=== PATIENT | male | born 1975 | race Caucasian/White ===

== ENCOUNTER 2017-09-09 05:50 | Inpatient (IN) | payer OTHER ==
[~2017-09-09] VITALS: Ht 200.7 cm; Wt 116.1 kg
[2017-09-09] VITALS (13 sets, daily range): BP systolic 120–152; BP diastolic 61–92
[~2017-09-09 05:50] MED LIST: HYDROCHLOROTH12.5 MG ORAL; LISINOPRIL10 MG ORAL; NORCO 10-325 T1 EACH ORAL; XANAX1 MG ORAL
[2017-09-09] MEDS ORDERED: Thrombin 5000 units spray kit TOPIC ONE (07:19)
[2017-09-09] MEDS ORDERED: Thrombin 5000 units TOPIC ONE (07:19)
[2017-09-09] MEDS ORDERED: EPINEPHrine 1mg/1ml Amp ONE (07:19)
[2017-09-09] MEDS ORDERED: Bacitracin Oint 15gm Tube TOPIC ONE (07:19)
[2017-09-09] MEDS ORDERED: Bupivacaine 0.5% Inj 30 ml vial INJ ONE (07:20)
[2017-09-09] MEDS ORDERED: Gelfoam Absorbable 1gm powder pkt TOPIC ONE (07:20)
[2017-09-09] MEDS ORDERED: Bacitracin 50000 Units Vial ONE ×2 (07:20→11:56)
[2017-09-09] MEDS ORDERED: Succinylcholine 20mg/ml 10ml vial ONE (07:56)
[2017-09-09] MEDS ORDERED: Zemuron 50mg/5ml Inj IV ONE ×2 (07:57→09:30)
[2017-09-09] MEDS ORDERED: LR 1000ml ONE (08:00)
[2017-09-09] MEDS ORDERED: Propofol 200mg/20ml IV ONE ×4 (08:02→12:11)
[2017-09-09] MEDS ORDERED: Ketorolac 30mg Inj ONE (08:06)
[2017-09-09] MEDS ORDERED: Glycopyrrolate 0.2mg/ml 1ml Vial ONE ×2 (08:06→10:18)
[2017-09-09] MEDS ORDERED: Lidocaine 1% MPF 10mg/ml 5ml ONE (08:06)
[2017-09-09] MEDS ORDERED: Dexamethasone 4mg/ml vial ONE (08:06)
--- NOTE | 2017-09-09 08:17 | Pre-Procedure Note/Attestation ---
Pre-Procedure Note/Attestation Complete Prior to Procedure Planned Procedure: bilateral - C6/7 bilateral foraminotomy, exploration of fusion C5 to C7 and revision PSIF C5 to C 7 Indications for Procedure Pre-Operative Diagnosis: pseudarthrosis C5 to C7 Attestation I attest that I discussed the nature of the procedure; its benefits; risks and complications; and alternatives (and the risks and benefits of such alternatives ), prior to the procedure, with the patient (or the patient's legal customer service representative). I attest that, if there was a reasonable possibility of needing a blood transfusion, the patient (or the patient's legal customer service representative) was given the [place] [employer] standardized written summary, pursuant to the Jovan Cici Blood Safety Act ([place] Health and Safety Code # 1645, as amended). I attest that I re-evaluated the patient just prior to the surgery and that there has been no change in the patient's H&P, except as documented below:no changes. NATHALY CLEANING Sep 09, 2017 08:17
[2017-09-09] MEDS ORDERED: Morphine Sulfate 10mg/ml Inj ONE (08:45)
[2017-09-09] MEDS ORDERED: fentaNYL 100 mcg/2 mL IV ONE ×3 (09:00→12:15)
[2017-09-09] MEDS ORDERED: Midazolam 2mg/2ml Inj ONE (09:03)
[2017-09-09] MEDS ORDERED: Acetaminophen 650 MG SUPP RECTAL PRN (09:15)
[2017-09-09] MEDS ORDERED: Labetalol 5mg/ml 20ml vial IV ONE (10:07)
[2017-09-09] MEDS ORDERED: HYDROcodone/Acetamin 7.5/325 tab ORAL PRN (11:15)
--- NOTE | 2017-09-09 13:32 | Brief Operative Note ---
Immediate Post Operative Note Operative Note Pre-op Diagnosis: pseudarthrosis C5 to C7 Procedure: Exploration of fusion C5 to C7, Bilateral C7 foraminotomy, posterior C5 to C7 PSIF with Lateral mass screws. 14mm long. Post-op Diagnosis: same as above Post-op Diagnosis: same as pre-op Findings: consistent w/pre-op dx studies Surgeon: caro Automatic Dry Starch Operator: burt WEINSTEIN Anesthesiologist: kyleigh corbett Anesthesia: general Specimen: none Complications: none Condition: stable Fluids: per Dr. Corbett Estimated Blood Loss: volume - 100 Drains: hemovac Implant(s) used?: Yes - Xspine posterior cervical system NTAHALY CLEANING Sep 09, 2017 13:32
[2017-09-09] MEDS ORDERED: Ketorolac 30mg Inj IV PRN (13:51)
[2017-09-09] MEDS ORDERED: Midazolam 2mg/2ml Inj IVP PRN (13:51)
[2017-09-09] MEDS ORDERED: LR 1000ml 1,000 ML IVLG SCH (14:00)
[2017-09-09] MEDS ORDERED: Naloxone 0.4mg/ml Inj IVP PRN (16:00)
--- NOTE | 2017-09-09 16:15 | Diagnostic Imaging Report ---
Indication: Pain, intraoperative Technique: Intraoperative images Comparison: none Findings: Images are very limited due to patient body habitus, demonstrate placement of posterior fusion hardware in the lower cervical spine Impression: Intraoperative imaging, as described
[2017-09-09] MEDS: D5 1/2NS w/KCl 20mEq 1,000 ML IV SCH (16:33)
[2017-09-09] MEDS: LORazepam 1mg tab ORAL PRN (17:14)
[2017-09-09] MEDS: Docusate 100mg cap ORAL SCH (17:14)
[2017-09-09] MEDS: Chloraseptic Spray 20mL Bottle ORAL PRN ×2 (18:33→23:32)
[2017-09-09] MEDS: ceFAZolin sod 1 GM in D5W 55 ML IV SCH (18:33)
[2017-09-09] MEDS: oxyCODONE 5mg IR tab ORAL PRN (20:32)
[2017-09-09] MEDS: HYDROcodone/Acetamin 7.5/325 tab ORAL PRN (23:31)
--- NOTE | 2017-09-10 00:30 | Operative Note - Dictated ---
DATE OF OPERATION: 09/09/2017 PREOPERATIVE DIAGNOSES: 1. Status post anterior cervical diskectomy and fusion C5-C7 status post spinal injury. 2. Pseudoarthrosis, most probable at C6-C7, recurrent radiculopathy, left arm greater than right arm. POSTOPERATIVE DIAGNOSES: 1. Status post anterior cervical diskectomy and fusion C5-C7 status post spinal injury. 2. Pseudoarthrosis, most probable at C6-C7, recurrent radiculopathy, left arm greater than right arm. PROCEDURE PERFORMED: 1. Rojas headholder with traction. 2. Posterior exploration of fusion. 3. Posterior arthrodesis with lateral mass screw, C5, C6, C7 bilaterally. 4. Bilateral foraminotomy, C7. 5. Posterolateral allograft and autograft fusion collected locally. 6. Posterior instrumentation. 7. BMI of greater than 35 and significant complexity factor due to BMI is necessary. SURGEON: Nelson Smith M.D. CONSULTING ACTUARY: [facility]. ANESTHESIOLOGIST: Robi Sandoval M.D. ANESTHESIA: General endotracheal combined anesthesia. ESTIMATED BLOOD LOSS: 100 to 150 mL. URINE OUTPUT: Per anesthesia records. INDICATIONS FOR PROCEDURE: A pleasant gentleman with a significant cervical pathology status post spinal injury. The patient had a previous ACDF performed by ma. He had done relatively well clinically, however, had a recurrent symptomatology with recurrent arm pain, left greater than right. He had a honeymoon period. The patient subsequently had been diagnosed with pseudarthrosis high probability, especially at C6-C7. The patient was offered surgical intervention to address his pseudoarthrosis versus continue living with pain. Conservative treatment was also discussed. The patient was found to have surgical intervention to address the pseudoarthrosis. The patient understood the risks and benefits of surgery including alternatives. No guarantees of outcome were given. The patient's risk factors include large body habitus. This increased the complexity of the surgery as well as extremely increases the difficulty of visualization of the hardware. The patient was cleared medically and subsequently taken to the operating room. On the day of surgery, the patient was positively identified. He had been optimized for surgery. He was intubated by the anesthesiologist, appropriate lines were inserted, and subsequently Rojas headholder traction was placed in the usual customary fashion. Approximately 2 to 3 fingerbreadths from the tragus midline in line with the tragus with single spike in the contralateral holding two spikes were spread between the temporalis and the parietal region. Once was applied, he was positioned with in-supervisor pipeline of the spine onto the Prasanth frame and the [place] headholder. Once he was secured safely with extensive tape with the abdomen hanging free, the x-rays were attempted to be taken. The fluoroscopic views were taken. The patient had significantly difficult body habitus as mentioned. The anterior-posterior view was the only good view and the lateral, I was only able to visualize C3. With rainbow views, I was able to visualize the hardware anteriorly, however, only as mentioned an oblique rainbow views. DESCRIPTION OF PROCEDURE: The patient's neck was prepped and draped in usual sterile fashion. Antibiotics were delivered as standard protocol. A surgical pause was undertaken. Subsequently, the posterior neck was prepped and draped and after surgical pause, an incision was made approximately 10 cm to 12 cm long. The subperiosteal dissection was carried down to the tips of the lateral masses dorsally. The facet joints were protected. During the exposure, my assistant front end manager performed cooling measures with copious irrigation during the exposure to prevent thermal injury. Once I had the posterior spine exposed, I palpated the lamina and found the most mobile lamina to be C4-C5, which was also confirmed on x-ray in the lateral view with oblique views. Again, there was significant tactile feedback relied on and very little x-ray assistance due to the patient's body habitus. The most stiffness were considered to be C5-C6 and C6-C7. However, there was still some mobility in those lamina as well. However, the C4-C5 lamina was the most mobile, and therefore, this was considered the C4-C5. I also obtained AP view, which confirmed the level. Subsequently, I drilled a regulatory affairs strategy specialist hole at C5, C6, and C7 and placed lateral mass screws in the usual trajectory with outward and upward trajectory. I countersunk the screws and placed 14 mm lateral mass screws. I had 5 solid sanchez with ball-tipped feelers in each regulatory affairs strategy specialist hole. Once I had initial C5 screws in, I reassessed with fluoroscopic views several times including oblique rainbow views and anterior-posterior views. Once I was able to crisp up and obtain a nice flat C5 cephalad vertebral endplate, it was notable that the C5 screws were in the right position. Again, this was a very difficult undertaking and the x-rays were very limited in assistance, even lateral x-rays with intraoperative portable x-ray was extremely difficult with the best visualization being at C3. Once the lateral mass screws were inserted, I irrigated the wound and placed the microscope into the view with my assistance and performed a foraminotomy using no pressure on the nerve roots and the Midas Ignacio drill as well as micro curettes and Kerrisons. Once I performed a generous foraminotomy on both sides, I copiously irrigated with pulse lavage of approximately 4-6 liters with bacitracin and placed a aaron and locked in with set screws. Once I performed the foraminotomy, it was noticeable that the C6-C7 level was very mobile as expected. The aaron was set, locked in place, lateral gutters were decorticated, and local collected bone graft was placed as well as fiber graft allograft. Final x-rays demonstrated good positioning of the anterior-posterior view. Again, the lateral view was very limited. [place] views were noted and they were found to be what seemed to be the most optimal position of the lateral mass screws. Direct visualization was also utilized as well as orthopedic technique with palpating the trajectory of the facet joint at the C4-C5 level and subsequently inserting the lateral mass screws in the upward and lateral position. The wound was copiously irrigated again and reapproximated with #1 Vicryl for the fascia and 2-0 Vicryl for dermis and 3-0 Monocryl for the skin. Implants were X-Spine Certex screws. Nelson Smith M.D. DR: ANAY JOB#: [id number] CC:
[2017-09-10] MEDS: LORazepam 1mg tab ORAL PRN ×2 (02:31→12:46)
[2017-09-10] MEDS: HYDROcodone/Acetamin 7.5/325 tab ORAL PRN ×3 (02:38→11:14)
[2017-09-10] MEDS: D5 1/2NS w/KCl 20mEq 1,000 ML IV SCH ×3 (02:41→22:38)
[2017-09-10] MEDS: ceFAZolin sod 1 GM in D5W 55 ML IV SCH ×2 (02:41→11:14)
[2017-09-10 04:00] VITALS: BP 132/74
[2017-09-10] MEDS: oxyCODONE 5mg IR tab ORAL PRN (05:48)
[2017-09-10 05:57] LABS: EOSINOPHILS % (AUTO) 0.6 % (0.0-3.0); HEMATOCRIT 37.6 % (42.0-52.0); HEMOGLOBIN 13.1 G/DL (14.2-18.0); LYMPHOCYTES % (AUTO) 26.9 % (20.0-45.0); MEAN CORPUSCULAR VOLUME 87 FL (80-99); MONOCYTES % (AUTO) 12.8 % (1.0-10.0); NEUTROPHILS % (AUTO) 58.6 % (45.0-75.0); PLATELET COUNT 208 K/UL (150-450); RED CELL DISTRIBUTION WIDTH 12.2 % (11.6-14.8); WHITE BLOOD COUNT 8.8 K/UL (4.8-10.8)
[2017-09-10 06:00] LABS: ANION GAP 8 mmol/L (5-15); BLOOD UREA NITROGEN 17 mg/dL (7-18); CALCIUM 7.9 MG/DL (8.5-10.1); CARBON DIOXIDE 27 MMOL/L (21-32); CHLORIDE 105 MMOL/L (98-107); CREATININE 1.2 MG/DL (0.55-1.30); POTASSIUM 4.1 MMOL/L (3.5-5.1); SODIUM 140 MMOL/L (136-145)
[2017-09-10] MEDS: Chloraseptic Spray 20mL Bottle ORAL PRN (06:55)
[2017-09-10 08:00] VITALS: BP 121/76
--- NOTE | 2017-09-10 08:06 | General Progress Note ---
Assessment/Plan Assessment/Plan pseudarthrosis C5 to C7 Exploration of fusion C5 to C7, Bilateral C7 foraminotomy, posterior C5 to C7 PSIF with Lateral mass screws. PLAN 1. incentive spirometry 2. DVT prophylaxis 3. PT evaluation and therapy 4. Hydration 5. Pain management; dc drain 6. discharge once stable with outpatient follow up. Subjective Allergies: Coded Allergies: METOCLOPRAMIDE (Verified Adverse Reaction, Severe, agitation and shaky, ) Subjective care noted has pain Objective Last 24 Hour Vital Signs Date Time Temp Pulse Resp B/P (MAP) Pulse Ox O2 Delivery O2 Flow Rate FiO2 09/10/17 04:00 98.2 85 19 132/74 96 Nasal Cannula 3.0 98.2 09/10/17 02:38 98.7 09/09/17 23:57 98.7 107 19 124/66 98 Nasal Cannula 3.0 98.7 09/09/17 20:00 98.0 108 19 122/65 99 Nasal Cannula 3.0 98.0 09/09/17 20:00 Nasal Cannula 2.0 28 09/09/17 20:00 98 Nasal Cannula 2.0 28 09/09/17 16:00 98.4 104 20 124/81 98 Nasal Cannula 3.0 98.4 09/09/17 15:00 98.6 09/09/17 15:00 98.6 101 20 120/79 100 Nasal Cannula 3.0 98.6 09/09/17 14:45 102 16 123/61 100 Nasal Cannula 3.0 09/09/17 14:30 98.3 09/09/17 14:30 98.6 09/09/17 14:30 100 23 127/83 100 Nasal Cannula 3.0 09/09/17 14:15 102 18 124/85 100 Nasal Cannula 3.0 09/09/17 14:00 98.3 09/09/17 14:00 103 18 142/92 100 Nasal Cannula 3.0 09/09/17 13:50 103 17 139/89 100 Simple Mask 6.0 09/09/17 13:38 100 25 122/82 100 Simple Mask 6.0 09/09/17 13:33 99 24 121/82 100 Simple Mask 6.0 09/09/17 13:28 97.6 103 16 127/81 100 Simple Mask 6.0 97.6 Intake and Output 09/09/17 09/10/17 19:00 07:00 Intake Total 2000 ml 3400 ml Output Total 600 ml 1540 ml Balance 1400 ml 1860 ml Intake Oral 2200 ml IV Total 1700 ml 1200 ml Other 300 ml Output Urine Total 500 ml 1500 ml Stool Total 0 ml Drainage Total 50 ml 40 ml Estimated Blood Loss 50 ml Laboratory Tests 09/10/17 05:40: White Blood Count 8.8, Red Blood Count 4.30L, Hemoglobin 13.1L, Hematocrit 37.6L , Mean Corpuscular Volume 87, Mean Corpuscular Hemoglobin 30.5, Mean Corpuscular Hemoglobin Concent 34.8, Red Cell Distribution Width 12.2, Platelet Count 208, Mean Platelet Volume 8.5, Neutrophils (%) (Auto) 58.6, Lymphocytes (% ) (Auto) 26.9, Monocytes (%) (Auto) 12.8H, Eosinophils (%) (Auto) 0.6, Basophils (%) (Auto) 1.0, Sodium Level 140, Potassium Level 4.1, Chloride Level 105, Carbon Dioxide Level 27, Anion Gap 8, Blood Urea Nitrogen 17, Creatinine 1.2, Estimat Glomerular Filtration Rate > 60, Glucose Level 136H, Calcium Level 7.9L Height (Feet): 6 Height (Inches): 7.00 Weight (Pounds): 256 Objective WDWN NAD clear breath sounds bilaterally without rhonchi or wheeze [id number] without MRG NABS nontender no HSM no CCE nonfocal ANGEL AMADOR Sep 10, 2017 08:06
[2017-09-10] MEDS: Docusate 100mg cap ORAL SCH ×2 (09:13→18:00)
[2017-09-10] MEDS: Lisinopril 10mg tab ORAL SCH (09:14)
[2017-09-10] MEDS: hydroCHLOROthiazide 12.5mg TAB ORAL SCH (09:14)
[2017-09-10 12:00] VITALS: BP 146/85
--- NOTE | 2017-09-10 12:15 | 48 Hour Post Anesthesia Eval ---
Post Anesthesia Evaluation Procedure: Posterior cervical laminotomy with decompression and interbody fusion Date of Evaluation: Sep 10, 2017 Time of Evaluation: 12:14 Blood Pressure Systolic: 139 0: 78 Pulse Rate: 86 Respiratory Rate: 20 Temperature (Fahrenheit): 97.6 O2 Sat by Pulse Oximetry: 98 Airway: patent Nausea: No Vomiting: No Pain Intensity: 3 Hydration Status: adequate Cardiopulmonary Status: stable Mental Status/LOC: patient returned to baseline Follow-up Care/Observations: n/a Post-Anesthesia Complications: none Follow-up care needed: N/A MADDIE BENAVIDES M.D. Sep 10, 2017 12:15
[2017-09-10 16:00] VITALS: BP 128/79
--- NOTE | 2017-09-10 17:22 | Diagnostic Imaging Report ---
Indication: Postoperative, pain Technique: 3 views of the cervical spine Comparison: 09/09/2017 Findings: Patient is status post posterior fusion at C5-C7. There is also anterior fusion at same segments. Hardware appears well aligned. There have posterior skin nano Impression: Postsurgical changes, as described
[2017-09-10 20:00] VITALS: BP 141/81
[2017-09-11] VITALS: BP 144/80
[2017-09-11] MEDS: HYDROcodone/Acetamin 7.5/325 tab ORAL PRN ×3 (01:44→09:35)
[2017-09-11 04:00] VITALS: BP 140/70
[2017-09-11] MEDS: Chloraseptic Spray 20mL Bottle ORAL PRN (07:01)
[2017-09-11] MEDS: LORazepam 1mg tab ORAL PRN (07:54)
[2017-09-11 08:00] VITALS: BP 150/95
[2017-09-11] MEDS: hydroCHLOROthiazide 12.5mg TAB ORAL SCH (08:00)
[2017-09-11] MEDS: Docusate 100mg cap ORAL SCH (08:00)
[2017-09-11] MEDS: Lisinopril 10mg tab ORAL SCH (08:00)
[2017-09-11] MEDS: D5 1/2NS w/KCl 20mEq 1,000 ML IV SCH (08:30)
[2017-09-11] MEDS ORDERED: SOMA350 MG PO (09:59)
--- NOTE | 2017-09-11 10:13 | General Progress Note ---
Assessment/Plan Assessment/Plan pseudarthrosis C5 to C7 Exploration of fusion C5 to C7, Bilateral C7 foraminotomy, posterior C5 to C7 PSIF with Lateral mass screws. PLAN dc home stable pain rx given follow up with spine taking po and ambulating well. Subjective Allergies: Coded Allergies: METOCLOPRAMIDE (Verified Adverse Reaction, Severe, agitation and shaky, ) Subjective care noted improved d/w spine Objective Last 24 Hour Vital Signs Date Time Temp Pulse Resp B/P (MAP) Pulse Ox O2 Delivery O2 Flow Rate FiO2 09/11/17 08:00 150/95 09/11/17 04:00 98.1 90 17 140/70 96 Room Air 98.1 09/11/17 00:00 99.7 99 19 144/80 96 Room Air 99.7 09/10/17 20:00 97.8 91 18 141/81 97 Room Air 97.8 09/10/17 16:00 98.7 94 20 128/79 96 Room Air 98.7 09/10/17 12:15 207.7 86 20 98 09/10/17 12:00 98.8 94 20 146/85 98 Room Air 98.8 Intake and Output 09/10/17 09/11/17 19:00 07:00 Intake Total 2205 ml 1200 ml Output Total 6 ml Balance 2199 ml 1200 ml IV Total 1155 ml 1200 ml Other 1050 ml Output Urine Total 5 ml Stool Total 1 ml Height (Feet): 6 Height (Inches): 7.00 Weight (Pounds): 256 Objective WDWN NAD clear breath sounds bilaterally without rhonchi or wheeze [id number] without MRG NABS nontender no HSM no CCE nonfocal ANGEL AMADOR Sep 11, 2017 10:13
--- NOTE | 2017-09-13 10:07 | Discharge Summary ---
Discharge Summary Hospital Course Date of Admission Sep 09, 2017 at 05:50 Date of Discharge Sep 11, 2017 at 10:57 Admitting Diagnosis Pseudoarthrosis, most probable at C6-C7 Reason for Hospitalization: elective surgery HPI Markel Mann is a 42 year old male who was admitted on Sep 09, 2017 at 05: 50 for Pseudoarthrosis, most probable at C6-C7. Patietn with history of anterior cervical diskectomy and fusion C5-C7, status post spinal injury. Patient was admitted for elective surgery. Procedures s/p 09/09/[address] Smith 1. Rojas headholder with traction. 2. Posterior exploration of fusion. 3. Posterior arthrodesis with lateral mass screw, C5, C6, C7 bilaterally. 4. Bilateral foraminotomy, C7. 5. Posterolateral allograft and autograft fusion collected locally. 6. Posterior instrumentation. Hospital Course s/p surgery course of recovery uneventful initially IV hydration, dc when tolerated diet pain management provided, pain controlled with current regimen drain discontinued incentive spirometry while in the bed out of bed with physical therapy, ambulated well neurovascular intact dressing clean, dry and intact DVT prophylaxis diet as tolerated, able to tolerate voided freely stable for discharge discharge instruction provided prescription for analgesics provided follow up with surgeon as outpatient FINAL DIAGNOSIS 1. History of anterior cervical diskectomy and fusion C5-C7, status post spinal injury. 2. Pseudoarthrosis, most probable at C6-C7 3. Recurrent radiculopathy (left arm greater than right arm) 4. s/p exploration of fusion C5 to C7, Bilateral C7 foraminotomy, posterior C5 to C7 PSIF with Lateral mass screws. Discharge Discharge Disposition Patient was discharged to Home (01) Discharge Instructions Discharge Instructions Special Instructions I have been assigned to complete a D/C Summary on this account. I was not involved in the patient management Dorothea Garcia NP ([place]) Sep 13, 2017 10:07
== END 2017-09-11 10:57 | disposition home or self-care (01) | DRG 473 ==
LOC: SDSOVERFLO 05:50 → 3E 15:06
PROC: 2W32XYZ Immobilization of Neck using Other Device (ICD-10-PCS; principal; 2017-09-09 07:30)
PROC: 0RG20J1 Fusion of 2 or more Cervical Vertebral Joints with Synthetic Substitute, Posterior Approach, Posterior Column, Open Approach (ICD-10-PCS; principal; 2017-09-09 07:30)
PROC: 2W62X0Z Traction of Neck using Traction Apparatus (ICD-10-PCS; principal; 2017-09-09 07:30)
DX: M96.0 Pseudarthrosis after fusion or arthrodesis (principal); M48.02 Spinal stenosis, cervical region; Z88.8 Allergy status to other drugs, medicaments and biological substances; M54.12 Radiculopathy, cervical region
CPT/HCPCS: 36415; 72020; 72040; 76001; 80048; 85025; 86850; 86900; 86901; 87081; 94760; J2250; J2405